=== PATIENT | female | born 1995 | race African-American/Black ===

== ENCOUNTER → 2020-07-20 | Outpatient (CLI) | payer OTHER ==
--- NOTE | 2020-07-25 15:00 | REP ---
TRIPLE PHASE BONE SCAN OF THE HIPS HISTORY: Pain. TECHNIQUE: Following the intravenous administration of 22.0 mCi Technetium-99m MDP, the patients hip regions are imaged in multiple projections in the flow phase, immediate blood pool phase, and three hour delayed phase. FINDINGS: There is no abnormal blood flow or blood pool identified in the region of either hip. Delayed images show homogeneous uptake of radiotracer throughout the osseous structures of the hips and pelvis. No focal abnormalities are seen. There is no occult fracture. IMPRESSION: Negative triple phase bone scan of the hips. MTDD
== END ==
LOC: M RAD 08:35
PROVIDERS: ATTEND Physician Assistant
DX: M25.551 Pain in right hip (principal); M25.552 Pain in left hip

== ENCOUNTER 2021-05-20 12:41 | Emergency (ER) | payer OTHER ==
[~2021-05-20] VITALS: Ht 172.7 cm; Wt 70.7 kg
[2021-05-20 12:42] VITALS: BP 131/94
[2021-05-20] MEDS ORDERED: IBUPROFEN 800 MG TAB PO ONE (15:10)
[2021-05-20] MEDS ORDERED: CYCL-707 PO (15:10)
[2021-05-20] MEDS ORDERED: IBUP80TA PO (15:10)
== END 2021-05-20 15:26 | disposition home or self-care (01) ==
LOC: M ED 12:41
DX: S39.92XA Unspecified injury of lower back, initial encounter (principal); X50.0XXA Overexertion from strenuous movement or load, initial encounter; Y92.89 Other specified places as the place of occurrence of the external cause; Y93.B3 Activity, free weights; Y99.1 Military activity

== ENCOUNTER → 2024-05-28 | Outpatient (REF) | payer OTHER, BC ==
[~2024-05-28] MED LIST: CYCL-707 PO; IBUP80TA PO
[2024-05-28 17:42] LABS: BASO % 0.4 % (0.0-1.0); EOS # 0.1 10^3/uL (0.0-0.5); EOS % 2.4 % (0.0-3.0); HEMATOCRIT 39.4 % (36.0-47.0); HEMOGLOBIN 12.4 g/dl (12.0-15.5); LYMPH # 1.2 10^3/uL (1.5-5.0); LYMPH % 25.4 % (24.0-44.0); MEAN CORPUSCULAR HEMOGLOBIN 28.3 pg (27.0-33.0); MEAN CORPUSCULAR HGB CONC 31.5 g/dl (32.0-36.5); MONO # 0.4 10^3/uL (0.0-0.8); MONO % 9.7 % (2.0-8.0); NEUTROPHILS # 2.8 10^3/uL (1.5-8.5); NEUTROPHILS % 61.9 % (36.0-66.0); PLATELET COUNT, AUTOMATED 431 10^3/uL (150-450); RED BLOOD COUNT 4.38 10^6/uL (4.00-5.40); WHITE BLOOD COUNT 4.5 10^3/uL (4.0-10.0)
[2024-05-28 17:56] LABS: HEMOGLOBIN A1c 5.2 % (4.0-6.0)
[2024-05-28 18:14] LABS: ALBUMIN 3.8 G/DL (3.2-5.2); ALKALINE PHOSPHATASE 122 U/L (46-116); ALT/SGPT 25 U/L (7.0-40); AST/SGOT 30 U/L (<34); BILIRUBIN,TOTAL 0.4 MG/DL (0.3-1.2); BLOOD UREA NITROGEN 10 MG/DL (9-23); CALCIUM LEVEL 9.2 MG/DL (8.5-10.1); CARBON DIOXIDE LEVEL 28 MMOL/L (20-31); CHLORIDE LEVEL 107 MMOL/L (98-107); CHOLESTEROL LEVEL 193 MG/DL (<200); CHOLESTEROL RISK RATIO 3.61 (<5); CREATININE FOR GFR 0.89 MG/DL (0.55-1.30); GLOMERULAR FILTRATION RATE > 60.0 (>60); GLUCOSE, FASTING 89 MG/DL (60-100); HDL CHOLESTEROL 53.4 MG/DL (>40); LDL CHOLESTEROL 118.2 MG/DL (<100); NON-HDL-C 139.6 MG/DL; POTASSIUM SERUM 4.6 MMOL/L (3.5-5.1); SODIUM LEVEL 137 MMOL/L (136-145); TOTAL PROTEIN 7.7 G/DL (5.7-8.2); TRIGLYCERIDES LEVEL 107 MG/DL (<150)
[2024-05-28 18:15] LABS: THYROID STIMULATING HORMONE 0.871 uIU/ML (0.55-4.78)
[2024-05-28 18:16] LABS: FOLLICLE STIMULATING HORMONE 6.8 mIU/ML; LUTEINIZING HORMONE 25.6 mIU/ML
[2024-05-28 18:17] LABS: TOTAL 25(OH) VITAMIN D 18.9 NG/ML (20.0-100.0)
== END ==
LOC: M LAB REF 16:36
PROVIDERS: ATTEND Nurse Practitioner Family
DX: E55.9 Vitamin D deficiency, unspecified (principal); E28.2 Polycystic ovarian syndrome; N92.6 Irregular menstruation, unspecified; E66.3 Overweight; R53.83 Other fatigue; Z11.9 Encounter for screening for infectious and parasitic diseases, unspecified

== ENCOUNTER → 2025-01-06 | Outpatient (CLI) | payer OTHER ==
[2025-01-06 10:43] LABS: HEMOGLOBIN A1c 4.8 % (4.0-6.0)
[2025-01-06 10:56] LABS: ALBUMIN 3.7 G/DL (3.2-5.2); ALKALINE PHOSPHATASE 116 U/L (35-104); ALT/SGPT 19 U/L (7.0-40); AST/SGOT 26 U/L (<34); BILIRUBIN,TOTAL 0.3 MG/DL (0.3-1.2); BLOOD UREA NITROGEN 10 MG/DL (9-23); CALCIUM LEVEL 9.1 MG/DL (8.5-10.1); CARBON DIOXIDE LEVEL 25 MMOL/L (20-31); CHLORIDE LEVEL 109 MMOL/L (98-107); GLOMERULAR FILTRATION RATE > 60.0 (>60); GLUCOSE, FASTING 87 MG/DL (60-100); POTASSIUM SERUM 4.8 MMOL/L (3.5-5.1); SODIUM LEVEL 141 MMOL/L (136-145)
[2025-01-06 10:57] LABS: FREE T4 1.33 NG/DL (0.89-1.76)
[2025-01-06 10:58] LABS: PROLACTIN 10.94 NG/ML; THYROID STIMULATING HORMONE 0.956 uIU/ML (0.55-4.78)
[2025-01-07 09:28] LABS: DEHYDROEPIANDROSTERONE SULFATE 184 mcg/dL (14-349)
[2025-01-08 15:12] LABS: HPV APTIMA Not Detected (Not Detected)
== END ==
LOC: M PLALAB 09:04
PROVIDERS: ATTEND Nurse Practitioner Family
DX: E28.2 Polycystic ovarian syndrome (principal); Z12.4 Encounter for screening for malignant neoplasm of cervix
CPT/HCPCS: 36415; 80053; 82627; 83036; 83498; 84146; 84402; 84403; 84439; 84443; 87624; G0123